=== PATIENT | female | born 1985 | race Caucasian/White ===

== ENCOUNTER 2019-03-08 10:55 | Emergency (ER) | payer OTHER, SELFPAY ==
[2019-03-08 10:55] VITALS: BP 154/130; PULSE 103; RESP 30; TEMP 36.6; O2SAT 100; BMI 28.3
--- NOTE | 2019-03-08 11:09 | CT_ITS ---
STUDY: CT CERVICAL SPINE WITHOUT CONTRAST REASON FOR EXAM: Female, 33 years old. Injury, fell off horse, + LOC, thrashing around, repeating words. RADIATION DOSAGE (If Supplied By Facility): CTDIvol = ( 19.64 ) mGy, DLP = ( 432.94 ) mGycm TECHNIQUE: High resolution transaxial imaging was performed without contrast material. Sagittal and coronal images were reconstructed. Individualized dose optimization techniques were used for this CT. COMPARISON: None FINDINGS: Normal craniovertebral junction. Normal anterior atlantoaxial articulation. Normal odontoid process. Normal cervical lordosis. Normal vertebral bodies and posterior osseous elements. C2-3: Normal endplates. Normal disc height and morphology. Normal central canal and intervertebral neuroforamina. C3-4: Normal endplates. Normal disc height and morphology. Normal central canal and intervertebral neuroforamina. C4-5: Normal endplates. Normal disc height and morphology. Normal central canal and intervertebral neuroforamina. C5-6: Normal endplates mild broad posterior disc protrusion without significant canal stenosis. Normal central canal and intervertebral neuroforamina. C6-7: Normal endplates. Normal disc height and morphology. Normal central canal and intervertebral neuroforamina. C7-T1: Normal endplates. Normal disc height and morphology. Normal central canal and intervertebral neuroforamina. Normal visualized soft tissue structures. CT/Spine Cervical without Contras IMPRESSION: 1. No cervical spine fracture or subluxation. 2. Degenerative disc protrusion at C5-C6, limited detail. Electronically Signed: Reinier Huffman MD ([facility]) at 12:35 EDT , Service support ,
--- NOTE | 2019-03-08 11:09 | CT_ITS ---
STUDY: CT CHEST WITHOUT CONTRAST REASON FOR EXAM: Female, 33 years old. Injury, fell off horse, + LOC, thrashing around, repeating words. RADIATION DOSAGE (If Supplied By Facility): CTDIvol = ( 8.89 ) mGy, DLP = ( 317.51 ) mGycm TECHNIQUE: Transaxial imaging was performed without the administration of intravenous contrast material. Individualized dose optimization techniques were used for this CT. COMPARISON: None. FINDINGS: There are bilateral breast implants. The lungs are normal. There is no demonstrated pleural abnormality. Normal heart and pericardium. Normal mediastinum. Calcified lymph nodes of the left hilum. Normal unenhanced pulmonary arteries. Normal aorta arch and descending thoracic aorta. No rib or thoracic spine fracture demonstrated. Upper abdomen described on abdomen/pelvis CT report. CT/Chest without Contrast IMPRESSION: No pleural effusion or pneumothorax. No demonstrated rib fracture. Electronically Signed: Reinier Huffman MD ([facility]) at 12:34 EDT , Service support ,
--- NOTE | 2019-03-08 11:09 | CT_ITS ---
STUDY: CT BRAIN WITHOUT CONTRAST REASON FOR EXAM: Female, 33 years old. Injury, fall off of horse, loss of consciousness RADIATION DOSAGE (If Supplied By Facility): CTDIvol = ( 44.99 ) mGy, DLP = ( 745.49 ) mGycm TECHNIQUE: Transaxial CT imaging of the brain was performed without administration of intravenous contrast material. Individualized dose optimization techniques were used for this CT. COMPARISON: No relevant priors. FINDINGS: Normal soft tissue structures. Normal calvarium. Normal size ventricles and extra-axial spaces for the patient's age. Normal white matter tracts of the cerebral hemispheres. Normal basal ganglia and thalami. Normal brainstem. Normal cerebellum. There is no intracranial hemorrhage. There are no findings of an acute ischemic infarction. Normal visualized paranasal sinuses. CT/Brain/Head without Contrast IMPRESSION: 1. No acute intracranial hemorrhage or mass effect. Electronically Signed: Reinier Huffman MD ([facility]) at 12:25 EDT , Service support ,
[2019-03-08] MEDS: LORazepam 2 MG/ML Syringe 0.5 MG IV (11:17)
[2019-03-08] MEDS: fentaNYL 100 MCG/2 ML Ampul 50 MCG IV (11:17)
[2019-03-08 11:20] VITALS: O2SAT 99
--- NOTE | 2019-03-08 11:35 | RAD_ITS ---
STUDY: X-RAY - LEFT SHOULDER REASON FOR EXAM: Female, 33 years old. Trauma, pt. and horse fell, she hit head, altered, LOC, pain in shoulder, pt. very agitated and difficult to image TECHNIQUE: 2 view(s) of the shoulder. COMPARISON: None. FINDINGS: Normal glenohumeral articulation. Normal acromioclavicular joint. Normal acromion. Normal humeral head and visualized proximal humerus. The soft tissue structures are unremarkable. Normal visualized pulmonary apex. RAD/Shoulder min 2 Views IMPRESSION: No demonstrated fracture or malalignment. Electronically Signed: Reinier Huffman MD ([facility]) at 12:11 EDT , Service support ,
--- NOTE | 2019-03-08 12:45 | ED.DCSUM_ITS ---
- ER Visit Summary Date of Service: 03/08/19 Chief Complaint: Head injury History of Present Illness: The patient is a 33 F [place] and she went with it falling slightly to the left and her head struck the ground. She did have a loss of conscious. She was wearing a riding helmet. Patient was very confused and nauseated complaining of neck upper back pain as well as left shoulder pain. Significant other states that she has difficulty with coming out of anesthesia and seems that like right now that is what is she is experiencing. They are from [place]. Physical Examination: Afebrile vital signs are stable Gen: Well-nourished well-developed Head: Normocephalic atraumatic Eyes: Perrl EOMI ENT: TMs clear no rhinorrhea moist mucous membranes Neck: Supple no lymphadenopathy no JVD cervical collar in place diffuse tenderness CVS: Regular rate rhythm no murmurs normal S1-S2 Respiratory: No distress clear to auscultation bilaterally chest nontender Abdomen: Soft nontender nondistended normal bowel sounds no masses Back: Palpation of the upper thoracic spine and paraspinal musculature Extremity: Nontender no edema Skin: Normal color there are some mild contusion abrasions Neuro: alert distal GCS of 13. Point for I 1 point off for verbal patient moves all extremities. Psych: Patient is crying intermittently screaming Test Results: Shoulder films were negative. CT of the brain cervical spine and chest were negative for acute injury Emergency Department Course and Treatment: Patient received Ativan and fentanyl she was cleared from the c-collar. Patient will be discharged home with supportive care. I will write for nausea medication. With the head injury would recommend Tylenol for pain. Impression: 1. Concussion with loss of conscious 2. Left shoulder contusion 3. Cervical and thoracic musculature strain This note was generated with [employer] dictation software. It may contain incorrect words, spelling, and punctuation that were not noted in review of the chart prior to signing ED Disposition - Plan for ED Patient: Disposition: Home or Assisted Living Instructions: CONCUSSION, No Wake Up, CONTUSION, Soft Tissue Prescriptions: Ondansetron [Zofran Odt] 4 mg PO Q6H PRN PRN #14 tab PRN Reason: Nausea Prescription Printed Additional Instructions: Follow-up with your doctor back home in [place].
== END 2019-03-08 13:37 | disposition home or self-care (01) ==
PROVIDERS: Emergency Provider Emergency Medicine
DX: S06.0X9A Concussion with loss of consciousness of unspecified duration, initial encounter (principal); S40.012A Contusion of left shoulder, initial encounter; S16.1XXA Strain of muscle, fascia and tendon at neck level, initial encounter; S29.012A Strain of muscle and tendon of back wall of thorax, initial encounter; R40.2410 Glasgow coma scale score 13-15, unspecified time; V80.010A Animal-rider injured by fall from or being thrown from horse in noncollision accident, initial encounter; Y93.52 Activity, horseback riding; Y92.9 Unspecified place or not applicable; K21.9 Gastro-esophageal reflux disease without esophagitis
CPT/HCPCS: 70450; 71250; 72125; 73030; 96374; 96375; 99285; A4216